=== PATIENT | female | born 1975 | race Caucasian/White ===

== ENCOUNTER 2021-05-14 16:54 | Emergency (ER) | payer OTHER, SELFPAY ==
[2021-05-14 17:04] VITALS: BP 131/77; PULSE 73; RESP 14; TEMP 36.9; O2SAT 98
[2021-05-14 17:16] VITALS: BP 131/77; PULSE 73; RESP 14; TEMP 36.9; O2SAT 98
--- NOTE | 2021-05-14 17:45 | ED.URI ---
HPI - URI/Sore Throat General Chief Complaint: Upper Respiratory Infection Stated Complaint: Sores on throat Time Seen by Provider: 05/14/21 17:45 Source: patient and RN notes reviewed Mode of arrival: ambulatory Limitations: no limitations History of Present Illness HPI Narrative: 45-year-old female presents with concern for sore throat with white spots. She also reports headache, occasional cough and occasional postnasal drainage, right ear pain. She denies fever, body aches, chills, shortness of breath. Denies intervention MD elicited complaint: sore throat Related Data Home Medications Medication Instructions Recorded Confirmed amlodipine 5 mg PO DAILY 05/14/21 05/14/21 spironolactone 100 mg PO DAILY 05/14/21 05/14/21 Allergies Allergy/AdvReac Type Severity Reaction Status Date / Time No Known Allergies Allergy Verified 05/14/21 17:14 Review of Systems Review of Systems: CONSTITUTIONAL: Denies malaise, chills, sweats, or fever. EYES: Denies visual changes, redness, or discharge. ENT: Reports rhinorrhea, otalgia and sore throat. CARDIOVASCULAR: Denies chest pain, palpitations, or edema. RESPIRATORY: Reports cough. Denies dyspnea. GASTROINTESTINAL: Denies abdominal pain, nausea, vomiting, diarrhea SKIN: Denies rash or itching. MUSCULOSKELETAL: Denies myalgia. NEUROLOGIC: Denies headache. All systems reviewed & are unremarkable except as noted in HPI and below PMFSH Comments At time of signature, agree with nursing past medical, surgical, social and family history. There is no relevant family history pertinent to the presenting complaint Exam Narrative: GENERAL: Well-appearing, well-nourished, and in no acute distress. HEAD: Normocephalic EYES: PERRLA, conjunctivae clear ENT: Nares clear, clear discharge. Mucous membranes moist. TM pearly burris with dull light reflex bilaterally; no tragal tenderness. Oropharynx erythematous without lesions. Tonsils enlarged and with white exudate, no drooling, no hoarseness, no trismus, uvula midline. NECK: Supple. No lymphadenopathy CHEST: Clear to auscultation, breath sounds equal. No wheezing, rhonchi, rales, or stridor. No respiratory distress, speaks in full sentences. HEART: Regular rate and rhythm. No murmur heard. SKIN: Warm, dry, no rash. NEURO: Alert and oriented x3. PSYCH: Normal mood and affect Course Course Emergency Course: Patient examined, discussed sending strep culture, starting antibiotics now versus waiting for culture. Patient reports she prefers to start antibiotic now C8, patient instructed to call to check on strep culture in 2 days and to DC antibiotic if it is negative Patient is aware of diagnosis, understands and agrees to treatment plan. Anticipatory guidance given. Patient agrees to follow-up as directed and is aware of reasons to seek care at the emergency department. Portions of this record may have been created with voice recognition software Vital Signs Vital signs: Vital Signs Temperature 98.4 F 05/14/21 17:04 Pulse Rate 73 05/14/21 17:04 Respiratory Rate 14 05/14/21 17:04 Blood Pressure 131/77 05/14/21 17:04 Pulse Oximetry 98 05/14/21 17:04 Temperature 98.4 F 05/14/21 17:16 Pulse Rate 73 05/14/21 17:16 Respiratory Rate 14 05/14/21 17:16 Blood Pressure 131/77 05/14/21 17:16 Pulse Oximetry 98 05/14/21 17:16 Reviewed. MDM - URI/Sore Throat MDM Narrative Medical decision making narrative: Differential diagnosis considered: Nam virus, strep pharyngitis, allergic rhinitis, upper respiratory tract infection, sinusitis, rhinosinusitis, nasopharyngitis. viral pharyngitis, otitis media, otitis externa, pneumonia, bronchitis, viral cough syndrome, viral syndrome, and influenza. Exam findings show no acute concerns or changes; patient is non-toxic appearing and is in no distress. Patient is appropriate for outpatient treatment and follow-up. Lab Data Attestation: I reviewed the patient's lab results. Lab
== END 2021-05-14 17:58 | disposition home or self-care (01) ==
PROVIDERS: Emergency Provider Nurse Practitioner; PCP Family Medicine Sports Medicine
DX: J03.90 Acute tonsillitis, unspecified (principal); I73.00 Raynaud's syndrome without gangrene; M34.9 Systemic sclerosis, unspecified
CPT/HCPCS: 87081; 87880; 99213; G0463

== ENCOUNTER → 2024-01-12 12:08 | Outpatient (REF) | payer OTHER, SELFPAY | LOC: ANHLAB 12:08 | PROVIDERS: PCP Family Medicine Sports Medicine; Visit Provider Plastic Surgery | DX: C43.9 Malignant melanoma of skin, unspecified (principal) | CPT/HCPCS: 88305 ==